=== PATIENT | female | born 2000 | race Caucasian/White ===

== ENCOUNTER 2021-04-25 11:11 | Inpatient (IN) ==
[2021-04-25 10:19] LABS: Basophils % 0.3 %; Eosinophils # 0.1 K/mcL (0.0-0.6); Eosinophils % 1.4 %; Hematocrit 40.2 % (35.3-44.9); Hemoglobin 13.3 g/dL (11.5-15.4); Immature Granulocytes % 0.3 % (0-4); Lymphocytes # 2.2 K/mcL (0.6-4.6); Lymphocytes % 21.4 %; Mean Corpuscular HGB Conc 33.1 g/dL (31.6-35.5); Mean Corpuscular Volume 90.5 fL (83.0-100.0); Mean Platelet Volume 10.8 fL (9.4-12.4); Monocytes # 0.7 K/mcL (0.0-1.3); Monocytes % 6.6 %; Neutrophils # 7.2 K/mcL (1.6-8.9); Platelet Count 266 K/mcL (140-400); Red Blood Count 4.44 M/mcL (3.82-4.97); Red Cell Distribution Width 12.8 % (11.5-14.5); White Blood Count 10.3 K/mcL (4.3-11.1)
[2021-04-25 10:38] LABS: Alanine Aminotransferase 12 Units/L (7-52); Aspartate Amino Transferase 19 Units/L (13-39); BUN/Creatinine Ratio 18 (6-26); Blood Urea Nitrogen 12 mg/dL (6-20); Lactate Dehydrogenase 233 Units/L (140-271); Uric Acid 8.2 mg/dL (2.3-7.6); eGFR For African Americans > 60 (> 60); eGFR For Non-African Americans > 60 (> 60)
[2021-04-25 11:06] LABS: Estimated Average Glucose 108 mg/dl; Hemoglobin A1C 5.4 %
[~2021-04-25 11:11] MED LIST: *HR* Labetalol 20 MG/4 ML SYRINGE IVP ONE; *HR* Labetalol 20 MG/4 ML SYRINGE IVP PRN; *HR* Nalbuphine 10 MG/ML AMPUL IV PRN; Calcium Gluconate 1,000 MG/10 ML VIAL IVP PRN; Famotidine 20 MG/2 ML VIAL IVP PRN; Metoclopramide 10 MG/2 ML VIAL IVP PRN; Naloxone 0.4 MG/ML INJ IVP PRN; Ondansetron 4 MG/2 ML VIAL IVP PRN
[2021-04-25] MEDS ORDERED: Betamethasone Acet/SodPhos 30 MG/5 ML VIAL IM SCH (11:15)
[2021-04-25] MEDS ORDERED: Ringers Solution, Lactated 1,000 ML ONE (11:16)
[2021-04-25] MEDS ORDERED: Penicillin G Potassium 5,000,000 UNIT in 0.9 % Sodium Chloride Mini Bag 100 ML IVPB ONE (11:16)
[2021-04-25] MEDS ORDERED: miSOPROStoL 25 MCG TABLET PO PRN (11:16)
[2021-04-25] MEDS: Ringers Solution, Lactated 1,000 ML IVC SCH ×2 (11:20→22:34)
[2021-04-25 11:57] LABS: Creatinine,Urine 218 mg/dL; Protein/Creatinine Ratio,Urine 3.96 mg/mg (0.00-0.20)
[2021-04-25] MEDS: Magnesium Sulf 20 gm/SW 500mL 20 GM/500 ML IV.SOLN IVC SCH ×2 (12:06→22:35)
[2021-04-25 12:11] LABS: Amphetamine Screen,Urine Negative ng/mL (Cutoff=1000); Barbiturate Screen,Urine Negative ng/mL (Cutoff=200); Benzodiazepines Screen,Urine Negative ng/mL (Cutoff=200); Cannabinoid Screen,Urine Negative ng/mL (Cutoff = 50); Cocaine Screen,Urine Negative ng/mL (Cutoff= 300); Opiate Screen,Urine Negative ng/mL (Cutoff=300); Phencyclidine Screen,Urine Negative ng/mL (Cutoff=25)
[2021-04-25 12:28] LABS: Influenza A PCR Negative (Negative); Influenza B PCR Negative (Negative); Resp. Syncytial Virus PCR Negative (Negative); SARS-CoV-2 by PCR (In House) Negative (Negative)
[2021-04-25] MEDS: Penicillin G Potassium 2,500,000 UNIT in 0.9 % Sodium Chloride 100 ML IVPB SCH ×3 (15:26→23:52)
[2021-04-25] MEDS ORDERED: Oxytocin 20 units/ LR 1000 mL 20 UNIT/1,000 ML BAG IVC SCH (16:30)
[2021-04-25] MEDS ORDERED: Ropivacaine/PF 0.2% 20 ML VIAL EP ONE (19:18)
[2021-04-25] MEDS ORDERED: EPHEDrine 50 MG/ML VIAL IVP PRN (19:18)
[2021-04-25] MEDS ORDERED: *HR* FentaNYL (PF) 100 MCG/2 ML VIAL EP ONE (19:18)
[2021-04-25] MEDS ORDERED: *HR* FentaNYL (PF) 100 MCG/2 ML VIAL ONE (21:41)
[2021-04-25] MEDS ORDERED: Ropivacaine/PF 0.2% 20 ML VIAL ONE (21:41)
[2021-04-25] MEDS: Epidural Premix (fent/bupiv) 110 ML EP SCH (22:36)
[2021-04-26] MEDS: Penicillin G Potassium 2,500,000 UNIT in 0.9 % Sodium Chloride 100 ML IVPB SCH (03:56)
[2021-04-26] MEDS: Ringers Solution, Lactated 1,000 ML IVC SCH (03:56)
[2021-04-26] MEDS: Epidural Premix (fent/bupiv) 110 ML EP SCH (05:36)
[2021-04-26] MEDS ORDERED: Lidocaine/EPI 1:200k 2% PF 20 ML VIAL ONE (06:34)
[2021-04-26] MEDS ORDERED: Ketorolac 30 MG/ML VIAL ONE (06:40)
[2021-04-26] MEDS ORDERED: Ondansetron 4 MG/2 ML VIAL ONE (06:40)
[2021-04-26] MEDS ORDERED: *HR* Morphine Sulfate/PF 10 MG/10 ML AMPUL ONE (06:40)
[2021-04-26] MEDS ORDERED: Acetaminophen IV 1,000 MG/100 ML BAG IVPB ONE (06:41)
[2021-04-26] MEDS ORDERED: *HR* HYDROmorphone PF 0.5 MG/0.5 ML SYRINGE IVP PRN (07:17)
[2021-04-26] MEDS ORDERED: Ondansetron 4 MG/2 ML VIAL IVP PRN ×2 (07:17→10:28)
[2021-04-26] MEDS ORDERED: Promethazine 6.25 MG in Water for inj. (sterile) 20 ML IVPB PRN (07:17)
[2021-04-26] MEDS: Magnesium Sulf 20 gm/SW 500mL 20 GM/500 ML IV.SOLN IVC SCH (08:53)
[2021-04-26] MEDS ORDERED: Naloxone 0.4 MG/ML INJ IVP PRN (10:28)
[2021-04-26] MEDS ORDERED: Simethicone 80 MG TAB.CHEW PO PRN (10:28)
[2021-04-26] MEDS ORDERED: Magnesium Sulf 20 gm/SW 500mL 20 GM/500 ML IV.SOLN IVC SCH (10:28)
[2021-04-26] MEDS ORDERED: *HR* OxyCODONE Immed Rel 5 MG TABLET PO PRN (10:28)
[2021-04-26] MEDS ORDERED: Oxytocin 20 units/ LR 1000 mL 20 UNIT/1,000 ML BAG IVC SCH ×2 (10:28)
[2021-04-26] MEDS ORDERED: Calcium Gluconate 1,000 MG/10 ML VIAL IVP PRN (10:28)
[2021-04-26] MEDS ORDERED: Metoclopramide 10 MG/2 ML VIAL IVP PRN (10:28)
[2021-04-26] MEDS: metroNIDAZOLE 500 MG TABLET PO SCH ×2 (15:33→20:10)
[2021-04-26] MEDS: cephALEXin 500 MG CAPSULE PO SCH ×2 (15:34→20:10)
[2021-04-26] MEDS: Ibuprofen 600 MG TABLET PO SCH (20:09)
[2021-04-26] MEDS: *HR* Enoxaparin 60 MG/0.6 ML SYRINGE SQ SCH (20:11)
[2021-04-27] MEDS: Prenatal Vit/FA 1 EACH TABLET PO SCH (08:19)
[2021-04-27] MEDS: cephALEXin 500 MG CAPSULE PO SCH ×3 (08:19→20:46)
[2021-04-27] MEDS: metroNIDAZOLE 500 MG TABLET PO SCH ×3 (08:19→20:46)
[2021-04-27] MEDS: *HR* Enoxaparin 60 MG/0.6 ML SYRINGE SQ SCH ×2 (08:20→20:46)
[2021-04-27 10:01] LABS: Alanine Aminotransferase 10 Units/L (7-52); Aspartate Amino Transferase 16 Units/L (13-39); BUN/Creatinine Ratio 20 (6-26); Blood Urea Nitrogen 13 mg/dL (6-20); Lactate Dehydrogenase 322 Units/L (140-271); Uric Acid 8.6 mg/dL (2.3-7.6)
[2021-04-27] MEDS: Ibuprofen 600 MG TABLET PO SCH (20:46)
[2021-04-27] MEDS: Acetaminophen 325 MG TABLET PO SCH (20:46)
[2021-04-28] MEDS: *HR* Enoxaparin 60 MG/0.6 ML SYRINGE SQ SCH (08:31)
[2021-04-28] MEDS: Acetaminophen 325 MG TABLET PO SCH (08:32)
[2021-04-28] MEDS: Prenatal Vit/FA 1 EACH TABLET PO SCH (08:32)
[2021-04-28] MEDS: Ibuprofen 600 MG TABLET PO SCH (08:32)
[2021-04-28 08:53] VITALS: PULSE 64; TEMP 98.4; O2SAT 100
[2021-04-28 09:59] VITALS: BP 134/81
== END 2021-04-28 12:03 | disposition home or self-care (01) | DRG 540 ==
LOC: 1NENULAB → 1NENUOBS 04-26 10:24
PROVIDERS: ADMIT Obstetrics & Gynecology; ATTEND Obstetrics & Gynecology